=== PATIENT | male | born 1980 | race American Indian/Alaskan Native ===

== ENCOUNTER 2019-04-07 18:16 | Emergency (ER) | payer SELFPAY ==
[2019-04-07 19:17] VITALS: BP 136/62
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
== END 2019-04-07 22:36 | disposition home or self-care (01) ==
LOC: ED 18:16
DX: L73.8 Other specified follicular disorders (principal); B35.4 Tinea corporis; Z79.899 Other long term (current) drug therapy
CPT/HCPCS: 99282